=== PATIENT | male | born 1935 | race Caucasian/White ===

== ENCOUNTER 2016-10-13 05:46 | Day surgery (SDC) | payer MEDICARE, OTHER ==
[~2016-10-13 05:46] MED LIST: AMLO2.5T OR; ASPI-94 PO; ATOR40TA49; FISH1000 PO; HYDR12.56 PO; INSULIN ASPART SQ; LEVIMIR FLEX PEN SC; NATE60TA2 OR; NEXI40GR OR; RAMI2.5C29 PO
[2016-10-13] MEDS ORDERED: SODIUM CHLOR 0.9% 1000 ML INJ 1,000 ML IV SCH ×2 (06:03→09:54)
[2016-10-13] MEDS ORDERED: MIDAZOLAM HCL 2 MG/2 ML VIAL IV SCH (06:15)
[2016-10-13] MEDS ORDERED: diphenhydrAMINE HCL 50 MG/ML VIAL IV SCH (06:15)
[2016-10-13] MEDS ORDERED: VICT18IN SQ (07:13)
[2016-10-13] MEDS ORDERED: GABA300C5 PO (07:13)
[2016-10-13] MEDS ORDERED: ALTA5CAP4 PO (07:13)
[2016-10-13] MEDS ORDERED: AMLO5 PO (07:13)
[2016-10-13] MEDS ORDERED: CILO100T PO (07:13)
[2016-10-13 07:14] VITALS: BP 155/71; PULSE 66; RESP 18; O2SAT 99
[2016-10-13] MEDS ORDERED: HEPARIN-NS/PF INJ 500 ML ONE (08:12)
[2016-10-13] MEDS ORDERED: MIDAZOLAM HCL 2 MG/2 ML VIAL ONE (08:13)
[2016-10-13] MEDS ORDERED: HEPARIN SODIUM - IV 10,000 UNITS/10 ML VIAL ONE (08:40)
--- NOTE | 2016-10-13 09:30 | CATHPROC ---
[employer] HIS Report Study Information Study Number Admission Scheduled Start Study Start [id number] 10/13/2016 10/13/2016 Oct 13 2016 7:54AM Referring Institution Admit Source Facility Department 1 Other [facility] - On Car Supervisor Physician and Clinical Staff Initial Jez Robert Disability Liaison Officer Clark Berger,ALVARO Other cathlab, cathlab Recorder Boo Arceo RCIS(BS) Scrub Jez Saldana,RT(R) Procedures Performed Procedure Location (Site) Vessel Name Angiogram (manual) Abd Aorta (A3) Aorta Angiogram (manual) Fem Art (left) Femoral Art Angiogram (manual) Iliac L. Com. (L4) Illiac Art. Angiogram (manual) Popliteal L (L10) Popliteal Angiogram (manual) SFA (left) Femoral Art Angiogram (manual) Tib, Ant. (left) Popliteal Periph stent Iliac L. Com. (L4) Illiac Art. OFFLINE CUTTER Iliac L. Com. (L4) Illiac Art. OFFLINE CUTTER ADD ON Wire insertion Fem Art (left) Femoral Art Equipment Time Material Expeditor Description Size Mfg Part Number Used/Scraped CATHETER, BIFURCATED 08:39 ANGIO-DYNAMICS FR 5 [id number] Used INFUSION BENEPHIT TRANSDUCER, TRUWAVE 07:55 MACK GHOSH * [id number] Used W/[employer] CARDIOVASCULAR CATHETER, STEALTH SOLID DBP- 08:48 Used SYSTEMS INC. 2.00MM 30 GRIT [id number] CARDIOVASCULAR 08:43 TAPE, RADIOPAQUE VIPER TRACK [id number] Used SYSTEMS INC. CARDIOVASCULAR 08:47 WIRE, FIRM (VIPER) 335 [id number] Used SYSTEMS INC. 09:17 CARDIVA MEDICAL VASCADE, FR6 CLOSURE SYSTEM FR 6\7 [id number] Used 08:39 CORDIS/ GRICELDA SHEATH, FR6 BRITE TIP 35CM FR 6 35CM [id number] Used BALLOON, ADMIRAL EXTREME 6 08:45 [employer] 80CM [id number] Used X 20 80CM STENT, 8 X 40 ASSURANT 09:05 INVATEC [employer] 80CM [id number] Used COBALT 80CM 07:55 MEDLINE INDUSTRIES PACK, CCL CUSTOM * [id number] Used 07:55 [employer] [employer] PACER PEN, SKIN DUAL W/ RULER * [id number] Used 08:38 Reble 30 NITZA INDEFLATOR [id number] Used [id number]- 09:16 Regenerate MEDICAL SHEATH, FR6.5 PRELUDE 11CM FR 6.5 Used [id number] 08:19 Regenerate MEDICAL WIRE, EXCHANGE 260CM .035 260CM [id number] Used 07:55 NAMIC MANIFOLD, 4 PORT * [id number] Used 07:55 NYCOMED OMNIPAQUE, 300 MG, 100ML 100ML [id number] Used 07:55 [employer] MED[employer] BLANKET,WARM AIR CCL * [id number] Used 08:19 TERUMO MEDICAL SHEATH, FR5 TERUMO (10CM) FR 5 [id number] Used 08:33 TERUMO MEDICAL/GRICELDA CATHETER, FR5 ANGLED 100CM FR 5 [id number] Used WIRE, ANGLED GLIDE .035 08:31 TERUMO MEDICAL/GRICELDA 260CM [id number] Used 260CM Equipment Model, Serial, Lot Number and Expiration Data Description Model Number Serial Number Lot Number Expiration Date CATHETER, STEALTH SOLID [id number] 07-12-2018 2.00MM 30 GRIT STENT, 8 X 40 ASSURANT COBALT [id number] 03-31-2017 80CM WIRE, FIRM (VIPER) 335 [id number] 04-11-2018 History: Current Medications Medication Dosage/Unit Route Frequency Last Date/Time Taken ASA Statins (any) PLAVIX History: Allergies Allergy Reaction No Known Allergies Labs Hgb (g/dl) Hct (%) WBC (l/cumm) Platelets (thousands) 12.00-18.00 37.00-55.00 4.80-10.80 140.00-450.00 14.2 43.3 7.4 138 BUN (mg/dl) Creatinine (mg/dl) BUN:Creatinine (1:x) 8.00-20.00 0.10-9.00 10.00-20.00 26 1.3 20 Na (meq/l) K (meq/l) 138.00-146.00 3.80-5.10 146 4.8 CPK-MB (ng/ML) 0.00-7.00 Not Drawn Medication Medication Total Dose (Bolus/Oral) Medication Total Dosage/Unit 1% XYLOCAINE 20 mL FENTANYL 50 mcg HEPARIN 7000 units VERSED 2 mg Medications (Bolus/Oral) Medication Time Given Dosage/Unit Administered By Reason VERSED 10/13/2016 8:22:33 AM 2 mg Burfield, Clark 2 mg VERSED given in lab by Clark Berger RN in Left Antecubital via Peripheral IV. Ordered by Jez Alvarez. FENTANYL 10/13/2016 8:26:04 AM 50 mcg Clark Berger 50 mcg FENTANYL given in lab by Clark Berger RN in Left Antecubital via Peripheral IV. Ordered by Jez Abbott. 1% XYLOCAINE 10/13/2016 8:26:38 AM 20 mL Jez Olivarez 20 mL 1% XYLOCAINE given in lab by Jez Olivarez in Left Groin via Subcutaneous. HEPARIN 10/13/2016 8:40:55 AM 5000 units Clark Berger 5000 units HEPARIN given in lab by Clark Berger RN in Left Antecubital via Peripheral IV. HEPARIN 10/13/2016 8:55:35 AM 2000 units Clark Berger 2000 units HEPARIN given in lab by Clark Berger RN in Left Antecubital via Peripheral IV. Medication (Drip) Medication Time Given Dosage/Unit Concentration/Unit Diluent (ml) Solution IV Solutions 10/13/2016 8:02:41 AM 0 mL (IV) 500 NaCl .9 Patient arrived on IV Solutions given by cathlab, cathlab in Left Antecubital via Peripheral IV. Pump /Drip Flow = 150 ml/hr using NaCl .9. Ordered by Jez Olivarez. Initial Case Assessment Cardiovascular HR Rhythm NIBP Chest Pain 66 nsr 152/76 0 Edema Present Skin color Skin None Normal Warm Dry Circulatory - Right Pulses Dorsalis Pedis Femoral d 1 Scale (0,1,2,3,4,d) Scale (0,1,2,3,4,d) Neurological State Oriented to time-place- Alert Moves all extremities person Respiration - General Respiration Rate SpO2 (%) (B/min) 15 100 Final Case Assessment Cardiovascular HR Rhythm NIBP Chest Pain 61 nsr 144/77 0 Edema Present Skin color Skin None Normal Warm Dry Circulatory - Right Pulses Dorsalis Pedis Femoral d 1 Scale (0,1,2,3,4,d) Scale (0,1,2,3,4,d) Neurological State Oriented to time-place- Alert Moves all extremities person Respiration - General Respiration Rate SpO2 (%) (B/min) 15 100 Chronological Log Time Study Chronological Log 8:02:29 Patient arrived via Bed. 8:02:30 Patient Name, D.O.B, / Armband Verified By R.N. 8:02:30 Consent signed by the physician and the patient and verified by the On Car Supervisor staff. 8:02:31 Pre-op and post- op instructions given; patient acknowledges understanding of instructions. 8:02:32 Verbal Stimulation=2 Physical Stimulation=2 Airway=2 Respiration=2 TOTAL=8. (0=absent, 1=franco ited, 2=present) 8:02:33 Presedation assessment performed by On Car Supervisor RN. 8:02:34 Immediate Presedation assesment performed by physician. 8:02:35 Patient has been NPO for More than 6Hrs. 8:02:35 Skin Breakdown-none per patient 8:02:38 Patient Warmer Placed on the Table. 8:02:38 Mercedes Prominences Protected 8:02:40 A # 20 IV was noted in the Antecubital (left). Grade = 0 Patient arrived on IV Solutions given by cathlab, cathlab in Left Antecubital via Peripheral IV. Pump/Drip Flow = 150 8:02:41 ml/hr using NaCl .9. Ordered by Jez Olivarez. 8:02:42 History and physical on the chart or being dictated. 8:07:56 MD arrived. Vitals capture started with the following parameters, Patient=Adult, Interval=5 min, Initial Pre rtovx=524 mmHg, 8:07:58 Deflation Rate=5 mmHg Assessment: Initial Case, HR=66 BPM, Rhythm=nsr, FWCS=769/76 mmhg, Chest Pain=0, Edema=None, Col or=Normal, Skin = Warm, Dry 8:08:02 Right Pulses: Fran Ped=d, Femoral=1 Neurological: State=Alert, Ox3, COSME Respiration: Resp=15 B/min, IrY5=494 % 8:08:36 HR=66 bpm, GMZG=555/76 mmhg, PvS5=391.0 %, Resp=14 B/min, Pain=0, Jhony=10, Sol=2 8:13:40 HR=65 bpm, VISV=937/73 mmhg, NqL4=025.0 %, Resp=13 B/min, Pain=0, Jhony=10, Sol=2 8:17:43 Contrast Scanned 8:17:44 Immediate Presedation assesment performed by physician. 8:19:18 HR=67 bpm, TIGN=979/70 mmhg, SpO2=99.0 %, Resp=13 B/min, Pain=0, Jhony=10, Sol=2 8:22:24 Pressure channel 1 zeroed. 8:22:33 2 mg VERSED given in lab by Clark Berger, RN in Left Antecubital via Peripheral IV. Ordered by Jez Olivarez. 8:23:42 HR=67 bpm, TIZH=053/75 mmhg, XeK0=100.0 %, Resp=13 B/min, Pain=0, Jhony=10, Sol=2 8:26:04 50 mcg FENTANYL given in lab by Clark Berger, RN in Left Antecubital via Peripheral IV. Ord ered by Jez Olivarez. Time Out. Correct patient, correct procedure,correct physician, ,power injector not loaded with contrast with surgical 8:26:19 team present. Time Out Concurred by MD, individual staff in procedure 8:26:30 Case Start 8:26:32 Verbal Stimulation=2 Physical Stimulation=2 Airway=2 Respiration=2 TOTAL=8. (0=absent, 1=franco ited, 2=present) 8:26:38 20 mL 1% XYLOCAINE given in lab by Jez Olivarez in Left Groin via Subcutaneous. 8:28:39 HR=66 bpm, HFLG=525/67 mmhg, SpO2=99.0 %, Resp=14 B/min, Pain=0, Jhony=10, Sol=2 8:29:14 Access site was Left Femoral Artery. 8:30:08 A SHEATH, FR5 TERUMO (10CM) FR 5 was advanced into the Fem Art (left) using the Percutaneous technique. Recorded Pressure: FA, HR=66, Condition=Condition 1 8:31:12 (Femoral Artery) FA 74/46/58 A CATHETER, FR5 ANGLED 100CM FR 5 was advanced over a wire. OMNIPAQUE, 300 MG, 100ML 100ML was u sed for 8:32:45 injections. 8:33:06 A WIRE, ANGLED GLIDE .035 260CM 260CM was inserted via Fem Art (left). 8:33:38 HR=68 bpm, EKBK=090/67 mmhg, SpO2=98.0 %, Resp=12 B/min, Pain=0, Jhony=10, Sol=2 8:34:50 Wire removed 8:35:33 Abd Aorta (A3) angiogram, manually injected. 8:36:23 Abd Aorta (A3) angiogram, manually injected. 8:37:41 OMNIPAQUE, 300 MG, 100ML 100ML AND 30 NITZA INDEFLATOR ADDED, 8:38:39 HR=65 bpm, ORXF=232/62 mmhg, SpO2=98.0 %, Resp=12 B/min, Pain=0, Jhony=10, Sol=2 A SHEATH, FR6 BRITE TIP 35CM FR 6 35CM was exchanged in the Fem Art (left). This was necessary i n order to 8:38:56 accomodate a larger catheter. Recorded Pressure: AoDes, HR=63, Condition=Condition 1 8:40:35 (Descending Thoracic Aorta) AoDes 123/46/76 8:40:55 5000 units HEPARIN given in lab by Clark Berger RN in Left Antecubital via Peripheral IV. 8:43:38 HR=61 bpm, MOOS=900/59 mmhg, SpO2=98.0 %, Resp=12 B/min 8:48:35 HR=62 bpm, URLV=140/59 mmhg, SpO2=99.0 %, Resp=11 B/min, Pain=0, Jhony=10, Sol=2 8:48:35 The previous wire was exchanged for a WIRE, FIRM (VIPER) 335. 8:49:41 An CATHETER, STEALTH SOLID 2.00MM 30 GRIT catheter was inserted into the Iliac L. Com. (L4). 8:50:39 Activated Clotting Time Drawn 8:53:38 HR=60 bpm, UAFR=949/58 mmhg, SpO2=99.0 %, Resp=12 B/min, Pain=0, Jhony=10, Sol=2 8:55:07 ACT (Normal Range 90-180) = 231 8:55:35 2000 units HEPARIN given in lab by Clark Berger RN in Left Antecubital via Peripheral IV. 8:55:46 Atherectomy of L. Common Illiac in progress 8:58:49 Catheter was removed w/o difficulty 8:59:18 HR=63 bpm, WOYJ=869/70 mmhg, SpO2=99.0 %, Resp=18 B/min, Pain=0, Jhony=10, Sol=2 8:59:59 A BALLOON, ADMIRAL EXTREME 6 X 20 80CM 80CM was inserted over WIRE, FIRM (VIPER) 335 via the Fem Art (left). 9:00:00 The previous wire was exchanged for a WIRE, EXCHANGE 260CM .035 260CM. 9:01:47 In the Iliac L. Com. (L4) a BALLOON, ADMIRAL EXTREME 6 X 20 80CM 80CM was inflated to 10 nitza s for 60 seconds. 9:04:23 HR=63 bpm, FGOC=736/60 mmhg, MnH2=604.0 %, Resp=18 B/min, Pain=0, Jhony=10, Sol=2 9:04:32 Balloon Removed. A STENT, 8 X 40 ASSURANT COBALT 80CM 80CM was advanced through a catheter over a WIRE, EXCHANGE 260CM 9:04:45 .035 260CM. A STENT, 8 X 40 ASSURANT COBALT 80CM 80CM was deployed at 7 atmospheres for 60 seconds in the Il iac L. Com. 9:06:30 (L4). 9:08:11 Delivery device removed 9:08:31 Abd Aorta (A3) angiogram, manually injected. 9:09:26 HR=61 bpm, OQAO=585/69 mmhg, VgL3=131.0 %, Resp=15 B/min, Pain=0, Jhony=10, Sol=2 A CATHETER, FR5 ANGLED 100CM FR 5 was advanced over a wire. OMNIPAQUE, 300 MG, 100ML 100ML was u sed for 9:09:35 injections. Recorded Pressure: AoDes, HR=65, Condition=Condition 1 9:10:33 (Descending Thoracic Aorta) AoDes 122/49/89 Recorded Pressure: LFA, HR=62, Condition=Condition 1 9:10:51 (Left Femoral artery) LFA 116/48/82 9:12:58 Iliac L. Com. (L4) angiogram, manually injected. 9:13:10 SFA (left) angiogram, manually injected. 9:13:36 HR=60 bpm, OVWH=649/93 mmhg, EsK2=982.0 %, Resp=15 B/min, Pain=0, Jhony=10, Sol=2 9:14:23 Fem Art (left) angiogram, manually injected. 9:14:27 Popliteal L (L10) angiogram, manually injected. 9:15:47 Tib, Ant. (left) angiogram, manually injected. 9:16:03 Catheter was removed w/o difficulty A SHEATH, FR6.5 PRELUDE 11CM FR 6.5 was exchanged in the Fem Art (left). This was necessary in order to achieve 9:16:04 vascular hemostasis. 9:16:21 VASCADE, FR6 CLOSURE SYSTEM FR 6\7 placement in the Fem Art (left) 9:18:20 Case End Assessment: Final Case, HR=61 BPM, Rhythm=nsr, KQXU=018/77 mmhg, Chest Pain=0, Edema=None, Col or=Normal, Skin = Warm, Dry 9:19:19 Right Pulses: Fran Ped=d, Femoral=1 Neurological: State=Alert, Ox3, COSME Respiration: Resp=15 B/min, VcI5=070 % 9:19:22 HR=62 bpm, SVTX=364/77 mmhg, JoS3=197.0 %, Resp=15 B/min, Pain=0, Jhony=10, Sol=2 9:19:37 Catheter(s) removed without difficulty 9:19:44 Sterile dressing applied to site 9:19:45 No case complications noted. 9:19:46 Cine recording checked. 9:19:49 Bedside Report will be given. 9:19:49 Implantable Device card placed in patient's chart. 9:19:51 Verbal Stimulation=2 Physical Stimulation=2 Airway=2 Respiration=2 TOTAL=8. (0=absent, 1=l imited, 2=present) 9:23:42 HR=62 bpm, KHGJ=063/83 mmhg, SeT9=645 %, Resp=17 B/min, Pain=0, Jhony=10, Sol=2 9:25:28 Patient moved to stretcher 9:26:24 Vitals capture stopped. End Study - Contrast Media Used In Study Contrast Total Opened (mL) Total Used (mL) Total Wasted (mL) Omnipaque 120 120 0 End Study - Maximum Contrast Load Max Contrast Load (mL) 288.1 End Study - Radiation Exposure Fluoro Time (minutes) 12.7 End Study - Patient Disposition Complications Transferred To Interventional Outcome No On Car Supervisor Holding successful
[2016-10-13] MEDS ORDERED: BACITRACIN OINT 0.9 GM PKT TOP ONE (10:00)
[2016-10-13] MEDS ORDERED: MISC INFORMATION XX ONE (10:00)
[2016-10-13] MEDS ORDERED: SODIUM CHLORIDE 0.9% FLUSH 10 ML FLUSH IV FLUSH PRN (10:00)
[2016-10-13] MEDS ORDERED: ATROPINE SULFATE 1 MG/ML VIAL IV PRN (10:00)
[2016-10-13] MEDS ORDERED: IOHEXOL 350 MG/ML 100 ML BTL (for Cath Lab) OTHER ONE (11:50)
[2016-10-13] MEDS ORDERED: IOHEXOL 350 MG/ML 50 ML BTL (for Cath Lab) OTHER ONE (11:50)
--- NOTE | 2016-10-13 13:00 | MP ---
cc: NATALIA DEVINE M.D. DATE OF SURGERY: October 13, 2016 INDICATIONS The left lower extremity thigh and calf claudication. Jaqueline class IIB. PROCEDURE PERFORMED Selective left common femoral angiography. Left pelvic angiography with lower extremity runoff examination. Orbital atherectomy with percutaneous transluminal angioplasty and stent implant left common iliac artery. PROCEDURE Following informed consent the patient was taken to the cardiac catheterization laboratory and both groins prepped and draped in the usual sterile manner. He was given intravenous Versed and fentanyl for awake sedation, 1% Xylocaine 15 mL for local anesthesia in the left groin. A short 5-Scottish introducer sheath was placed in the left femoral artery via modified Seldinger technique without difficulty. Through this wire initially a 0.035 J-wire was passed but was unsuccessful in passing the stenosis in the common iliac artery and this wire was removed. This was replaced with the use of a 0.035 angled glide wire and a 5-Scottish angled glide catheter. All of these were passed with mild difficulty through the stenosis in the common iliac artery and placed in the distal aorta. The wire was removed and angiograms were performed both antegrade and retrograde via the sheath and the left groin. A total of 7500 unit of IV heparin was administered to achieve an ACT of 250 seconds for the rest of the procedure. For intervention the 5-Scottish introducer sheath was exchanged over a wire for a 6-Scottish 35-mm length bright tip sheath. This was utilized throughout the intervention and was subsequently exchanged for a 6-Scottish short sheath at completion of the procedure for placement of a Vascade closure device. When significant gradient was seen it was decided to proceed with percutaneous intervention. Because of the heavy calcification and eccentric nature of the stenosis it was decided to proceed with orbital atherectomy. A [employer] ana back 2.0 mm solid bur was utilized. Multiple passes were performed at low, medium and high speeds from 15-25 seconds in duration. Following this the atherectomy catheter was removed and angiogram was performed. There was significant improvement in flow but still a significant 70% stenosis. Follow up balloon angioplasty was performed with a [employer] Admiral Extreme 6 x 20-mm balloon catheter which was taken to 7 atmospheres for 30 seconds. This balloon catheter was deflated and removed. A still inadequate lumen result was seen with a residual 50-60% stenosis. Follow up stent implant was performed with a [employer] Valentine 8 x 40-mm balloon expandable stent. This was passed easily across the stenosis and deployed at a maximum pressure of 7 atmospheres for 30 seconds. The balloon deployment catheter was deflated and removed and a good result was seen. Final angiograms were taken. Subsequent angiograms were performed of the left external iliac, femoral artery and runoff examination down to the left foot. At completion of the diagnostics and interventional study, when good result was seen, the bright tip sheath was exchanged over a wire for a 6-Scottish short introducer sheath for placement of a Vascade device. That was placed without difficulty in the left femoral artery with good hemostasis. The patient tolerated the procedure well. There were no immediate complications and he was transferred to the post angioplasty unit in stable condition for discharge to home later today. HEMODYNAMIC DATA: There is initial significant gradient noted across the stenosis in the left common iliac artery was 60 mmHg. Following intervention and final stent implant there was no residual gradient recorded upon pullback catheter from the distal aorta to the distal internal iliac beyond the stent. For complete hemodynamic details, please see accompanying paperwork. ANGIOGRAPHIC FINDINGS: The distal aorta has moderate atherosclerotic plaquing but the bifurcation into the common iliac is widely patent. There is a stent that is widely patent noted at the origin and proximal to midportion of the right common iliac. The left common iliac has heavy calcification in the mid segment with severe 80-90% eccentric stenosis noted. Following this the external iliac and internal iliac are widely patent. There was moderate luminal irregularities noted throughout the femoral artery, superficial femoral artery and popliteal. There is an area of up to 60% narrowing at the adductor canal with moderate calcification noted. There is three-vessel runoff in the lower extremity below the knee on the left. ANGIOGRAPHIC RESULTS: In the proximal to midportion of the left common iliac artery a vessel of approximately 8 mm in diameter, there is a severe 80-90% eccentric and heavily calcified stenosis noted. Following orbital atherectomy there is 70% residual stenosis. Following balloon angioplasty there is a 50-60% residual stenosis and following stent implant there is less than 10% residual stenosis. Distal runoff is excellent and as mentioned above no gradient was detected following stent implant. DIAGNOSIS 1. Severe and functionally limiting claudication of the left lower extremity despite maximal medical therapy. 2. Severe left common iliac stenosis. 3. Moderate distal left SFA stenosis. 4. Successful Diamondback 360 orbital atherectomy/RECORD MAKER/balloon expandable stent implant of the left common iliac artery. COMMENT/RECOMMENDATIONS: Angiographically, this patient had excellent result today and should have significant improvement in his exertional symptoms. He will be observed over the next 4 hours with intravenous fluids because of his chronic renal insufficiency and if he is ambulatory and stable later this afternoon be discharged to home with followup arranged with me next week. I will discontinue cilostazol at this time. Continue aspirin and Plavix 75 mg daily. MD ALHAJI Smith/MARCELO /11:23 AM /12:21 PM MTDD
[2016-10-13] MEDS ORDERED: SODIUM CHLORIDE 0.9% FLUSH 10 ML FLUSH IV FLUSH SCH (21:00)
[2016-10-14] MEDS ORDERED: CLOPIDOGREL 75 MG TAB PO SCH (09:00)
== END 2016-10-13 14:10 | disposition home or self-care (01) ==
LOC: HDOC 05:46 → HDIC 05:47 → HDOC 14:10
PROVIDERS: ATTEND Internal Medicine Interventional Cardiology
DX: I73.9 Peripheral vascular disease, unspecified (principal); I10 Essential (primary) hypertension
CPT/HCPCS: 37221; 75710; C1714; C1725; C1760; C1769; C1876; C1887; C1893; G0269; J1644; J2250; J3010; J7030; Q9967